=== PATIENT | male | born 1995 | race Caucasian/White ===

== ENCOUNTER → 2024-12-09 15:15 | Outpatient (BNVA) | payer SELFPAY | PROVIDERS: Visit Provider Family Medicine | DX: R19.5 Other fecal abnormalities (principal); R10.9 Unspecified abdominal pain; R53.82 Chronic fatigue, unspecified | CPT/HCPCS: 80053; 80061; 84439; 84443; 85025 ==

== ENCOUNTER 2024-12-25 15:32 | Outpatient (CLI) | payer SELFPAY ==
--- NOTE | 2024-12-25 16:00 | CTR_ITS ---
PROCEDURE INFORMATION: Exam: CT Abdomen And Pelvis Without Contrast Exam date and time: 12/25/2024 3:49 PM Age: 29 years old Clinical indication: Constipation; Abdominal pain; Epigastric; Additional info: R10.13 - epigastric pain, TECHNIQUE: Imaging protocol: Computed tomography of the abdomen and pelvis without contrast. Radiation optimization: All CT scans at this facility use at least one of these dose optimization techniques: automated exposure control; mA and/or kV adjustment per patient size (includes targeted exams where dose is matched to clinical indication); or iterative reconstruction. COMPARISON: No relevant prior studies available. RADIATION DOSE METRICS: Total DLP (mGy-cm): 355.4 FINDINGS: Liver: No discrete liver lesions are apparent. Smooth hepatic contour. Gallbladder and biliary ducts: No gallbladder distension or inflammation. No calcified gallstones are apparent. No common bile duct abnormality is evident. Pancreas: No evidence of pancreatitis. No ductal dilation. Spleen: Spleen is within normal limits. Adrenal glands: Adrenal glands are within expected limits. Kidneys and ureters: No renal or ureteral calculi are identified. No hydronephrosis. Stomach and bowel: Small bowel is normal caliber. No obstruction. Large bowel within normal limits. No inflammatory wall thickening or abnormal bowel dilatation. Appendix: No evidence of appendicitis. Intraperitoneal space: No free air. No significant fluid collection. Vasculature: No abdominal aortic aneurysm. Lymph nodes: No pathologically enlarged lymph nodes by CT size criteria. Urinary bladder: Unremarkable as visualized. Reproductive: Unremarkable as visualized. Bones/joints: No acute osseous abnormalities. Soft tissues: Unremarkable. CT/CT abdomen pelvis wo con [id number] IMPRESSION: No acute findings.
== END 2024-12-25 15:33 | disposition home or self-care (01) ==
LOC: RAD 15:36
PROVIDERS: PCP Family Medicine; Visit Provider Family Medicine
DX: R10.13 Epigastric pain (principal); R10.11 Right upper quadrant pain; R19.5 Other fecal abnormalities; R14.3 Flatulence; R14.0 Abdominal distension (gaseous)
CPT/HCPCS: 74176

== ENCOUNTER → 2025-01-06 16:00 | Outpatient (BNVA) | payer SELFPAY | PROVIDERS: PCP Family Medicine; Visit Provider Family Medicine | DX: R19.5 Other fecal abnormalities (principal); R14.3 Flatulence; R10.13 Epigastric pain; R14.0 Abdominal distension (gaseous) | CPT/HCPCS: 87045; 87177; 87209; 87328; 87329; 87427; 87449; 87493 ==

== ENCOUNTER → 2025-02-12 15:19 | Outpatient (BNVA) | payer SELFPAY | PROVIDERS: PCP Family Medicine; Visit Provider Family Medicine | DX: R19.5 Other fecal abnormalities (principal); R14.3 Flatulence; R10.11 Right upper quadrant pain; R14.0 Abdominal distension (gaseous) | CPT/HCPCS: 82785; 86001; 86003 ==